=== PATIENT | male | born 1985 | race Two or more races ===

== ENCOUNTER 2025-05-03 14:55 | Emergency (ER) | payer MEDICAID ==
[~2025-05-03] VITALS: Ht 172.7 cm; Wt 102.7 kg
[2025-05-03 15:02] VITALS: TEMP 98.3
[2025-05-03] MEDS ORDERED: CARB-92 PO (15:09)
[2025-05-03] MEDS ORDERED: FLUO-418 PO (15:09)
[2025-05-03] MEDS ORDERED: HYDR50CA7 PO (15:10)
[2025-05-03] MEDS ORDERED: DOXY50 PO (15:10)
[2025-05-03] MEDS ORDERED: PROP20TA18 PO (15:10)
[2025-05-03] MEDS ORDERED: BUSP15 PO (15:10)
[2025-05-03] MEDS ORDERED: CETI10TA77 PO (15:10)
[2025-05-03] MEDS ORDERED: PANT-31 PO (15:10)
[2025-05-03] MEDS ORDERED: EMTR1TAB15 PO (15:10)
[2025-05-03 15:15] VITALS: BP 111/90; PULSE 70; RESP 19; O2SAT 100
[2025-05-03 15:26] LABS: PLATELET COUNT (AUTO) 307 K/uL (150-450); RED BLOOD CELL COUNT(AUTO) 5.47 MIL/uL (4.50-5.90); RED CELL DISTRIBUTION WIDTH 14.2 % (11.5-14.5); WHITE BLOOD COUNT (AUTO) 8.1 K/uL (4.5-11.0)
[2025-05-03 15:35] LABS: CALCIUM, TOTAL 8.5 mg/dL (8.8-10.5); CREATININE 0.98 mg/dL (0.60-1.30); GLOMERULAR FILTR. RATE CALC > 60 mL/min (>60); GLUCOSE,RANDOM 112 mg/dL (70-110); SODIUM SERUM 142 mmol/L (136-145); UREA NITROGEN, BLOOD 14 mg/dL (7-18)
[2025-05-03] MEDS: METOCLOPRAMIDE HCL 5 MG/ML 2 ML VIAL IVP ONE (16:27)
[2025-05-03] MEDS: KETOROLAC TROMETHAMINE 30 MG/ML VIAL IVP ONE (16:29)
[2025-05-03] MEDS: SODIUM CHLORIDE 0.9% 1,000 ML IV ONE (16:39)
== END 2025-05-03 17:42 | disposition home or self-care (01) ==
LOC: EMS 15:14
DX: G43.909 Migraine, unspecified, not intractable, without status migrainosus (principal); F31.9 Bipolar disorder, unspecified; F41.9 Anxiety disorder, unspecified; Z90.49 Acquired absence of other specified parts of digestive tract; Z79.624 Long term (current) use of inhibitors of nucleotide synthesis; Z79.899 Other long term (current) drug therapy; Z88.5 Allergy status to narcotic agent
CPT/HCPCS: 99284; 96374; 96375; 96361; 80048; 85025; 36415; J1885; J1200; J2765; J7030